=== PATIENT | female | born 1985 | race Two or more races ===

== ENCOUNTER 2018-07-13 09:22 | Emergency (ER) | payer MEDICAID ==
[~2018-07-13] VITALS: Ht 165.1 cm; Wt 54.4 kg
[2018-07-13 09:34] VITALS: BP 123/74
[2018-07-13] MEDS ORDERED: cefTRIAXone SOD 1,000 MG VL IM ONE (10:45)
== END 2018-07-13 11:19 | disposition home or self-care (01) ==
LOC: ER 09:22
DX: N39.0 Urinary tract infection, site not specified (principal)
CPT/HCPCS: 96372; 99283; J0696